=== PATIENT | male | born 1970 | race Caucasian/White ===

== ENCOUNTER 2016-11-08 20:49 | Emergency (ER) | payer OTHER ==
[~2016-11-08] VITALS: Ht 172.7 cm; Wt 70.0 kg
[2016-11-08 20:53] VITALS: Ht 172.7 cm; Wt 70.0 kg
[2016-11-08] MEDS ORDERED: SODIUM CHLORIDE 0.9% 1000ML 1,000 ML IV STA (20:59)
[2016-11-08 21:01] VITALS: O2SAT 98
[2016-11-08] MEDS ORDERED: FENTANYL CITRATE INJ 50 MCG/1 ML 2 ML VIAL IV STA (21:03)
[2016-11-08 21:15] LABS: ISTAT HEMOGLOBIN 15.3 g/dl (14.0-18.0); ISTAT IONIZED CALCIUM 1.07 mmol/l (1.12-1.32)
[2016-11-08] MEDS ORDERED: OPTIRAY 320 IV PRN (21:15)
[2016-11-08 21:17] LABS: HEMATOCRIT 43.3 % (42-52); MEAN CELL VOLUME 87.3 fL (80-100); MEAN CORPUSCULAR HEMOGLOBIN 29.8 pg (25-34); MEAN CORPUSCULAR HGB CONC 34.2 g/dl (32-36); MEAN PLATELET VOLUME 9.3 fL (7.4-10.4); PLATELET COUNT 240 K/uL (130-400); RED BLOOD COUNT 4.96 M/uL (4.7-6.1); WHITE BLOOD COUNT 12.86 K/uL (4.8-10.8)
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
[2016-11-08 21:26] LABS: PARTIAL THROMBOPLASTIN RATIO 0.9; PROTHROMBIN TIME (PATIENT) 10.5 SECONDS (9.0-12.0)
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
[2016-11-08 21:38] LABS: BLOOD UREA NITROGEN 17 mg/dl (7-18); BUN/CREATININE RATIO 17.7 (10-20); CARBON DIOXIDE 29 mmol/L (21-32); CHLORIDE 103 mmol/L (98-107); CREATININE 0.98 mg/dl (0.60-1.40); GLUCOSE 121 mg/dl (70-99); SODIUM 138 mmol/L (136-145)
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
[2016-11-08 21:46] LABS: ALKALINE PHOSPHATASE 55 U/L (45-117); ALT/SGPT 35 U/L (12-78); AST/SGOT 26 U/L (15-37)
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
[2016-11-08 22:18] LABS: BASO % 0.2 %; BASO ABS # 0.03 K/uL (0-0.2); COMPLETE YES; EOS % 0.6 %; IG% 0.4 %; LYMPH % 10.3 %; LYMPH ABS # 1.32 K/uL (1.2-3.4); MONO % 5.4 %; NEUT % 83.1 %
[2016-11-08] MEDS ORDERED: LIDOCAINE/EPINEPH/TETRACAINE 1 EA SYR EXT SCH (22:30)
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
--- NOTE | 2016-11-08 22:37 | EMERGENCY ROOM VISIT NOTE ---
ED Visit Note 46-year-old male who I was asked by Dr. Chapa, ED attending physician, to perform a scalp laceration repair. Please see Dr. Chapa's dictation for further treatment and final disposition. PROCEDURE NOTE: Examination of the left parietum shows a 1.5 center meter laceration without active bleeding or hematoma formation. The wound was already cleansed prior to my evaluation. The patient refused any local analgesics. The wound was then approximated using merritt 4. Bacitracin was applied to the wound.
[2016-11-08 23:43] VITALS: BP 125/78; PULSE 83; TEMP 37; O2SAT 97
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
== END 2016-11-08 23:44 | disposition short-term general hospital (02) ==
LOC: EDBD 20:49 → C.EDB 20:50
DX: S22.42XA Multiple fractures of ribs, left side, initial encounter for closed fracture (principal); S27.2XXA Traumatic hemopneumothorax, initial encounter; T79.7XXA Traumatic subcutaneous emphysema, initial encounter; S01.01XA Laceration without foreign body of scalp, initial encounter; W55.82XA Struck by other mammals, initial encounter